=== PATIENT | female | born 1990 | race Hispanic/Latino ===

== ENCOUNTER 2016-09-23 08:17 | Emergency (ER) | payer OTHER ==
[~2016-09-23] VITALS: Ht 152.4 cm; Wt 64.0 kg
[~2016-09-23 08:17] MED LIST: FLOMAX(MONOGRA0.4 MG PO; PERCOCET 325 MG1 TA2 PO; TRAMADOL50 MG PO
[2016-09-23 08:50] LABS: ABSOLUTE BASOPHIL COUNT 0 /CUMM (0.0-0.2); ABSOLUTE EOSINOPHIL COUNT 0.1 /CUMM (0.0-0.7); ABSOLUTE GRANULOCYTE CT 4.6 /CUMM (1.4-6.5); ABSOLUTE LYMPH COUNT 2.1 /CUMM (1.2-3.4); ABSOLUTE MONOCYTE COUNT 0.4 /CUMM (0.10-0.60); BASOPHIL % 0.6 % (0.0-2.0); EOSINOPHIL % 1.8 % (0-5); GRANULOCYTE % 62.8 % (42.2-75.2); HEMATOCRIT 44.6 % (37-47); MEAN CORPUSCULAR HGB 30.6 PG (27.0-31.0); MEAN CORPUSCULAR HGB CONC 33.9 G/DL (33.0-37.0); MEAN CORPUSCULAR VOLUME 90.2 FL (81.0-99.0); MEAN PLATELET VOLUME 9.2 FL (7.4-10.4); PLATELET COUNT 236 /CUMM (130-400); RED BLOOD CELL CT 4.95 /CUMM (4.20-5.40); WHITE BLOOD CELL COUNT 7.4 /CUMM (4.8-10.8)
--- NOTE | 2016-09-23 08:58 | ED GI/GU/ABDOMINAL COMPLAINT ---
History of Present Illness General Chief Complaint: Abdominal Pain/Flank Pain Stated Complaint: RLQ ABD PAIN RADIATING TO BACK Source: patient Exam Limitations: no limitations Vital Signs & Intake/Output Vital Signs & Intake/Output Vital Signs Date Time Temp Pulse Resp B/P Pulse O2 O2 Flow FiO2 Ox Delivery Rate 09/23 1031 97.9 88 18 115/71 98 09/23 0822 97.1 93 20 107/73 97 Room Air Allergies Coded Allergies: NO KNOWN ALLERGIES (10/27/13) Reconcile Medications Ibuprofen 800 MG TABLET 1 TAB PO TID pain OXYCODONE HCL/ACETAMINOPHEN (Percocet 5-325 MG Tablet) 325 MG/5 MG TAB 1-2 TAB PO Q4-6 PRN PRN severe pain Tamsulosin Hydrochloride (Flomax) 0.4 MG CAP.ER.24H 1 CAP PO DAILY kidney stone TRAMADOL HCL (Tramadol) 50 MG TABLET 1-2 TAB PO Q6-PRN PRN moderate pain Triage Note: C/O LOWER ABDOMINAL PAIN, SAW PMD YESTERDAY AND WAS SENT HERE FOR CT SCAN. STATES NOW THE PAIN IS RADIATING NOW INTO RIGHT GROIN AND RIGHT FLANK. PT STATES IT FEELS LIKE A KIDNEY STONES SHE HAS HAD IN THE PAST. ALSO C/O N/V/D Triage Nurses Notes Reviewed? yes ? N Is pt currently ? No Onset: Abrupt Duration: week(s): (1), getting worse Timing: recent history Quality/Severity: moderate, sharpness, severe Location: right lower quadrant Radiation: back Activities at Onset: none No Modifying Factors: none HPI: 26-year-old female comes into emergency room for further evaluation of right lower abdominal pain has been going on since late last week getting progressively worse. Patient reports that she started with generalized abdominal pain nausea vomiting and now the pain is worse in the right lower abdomen. Decreased appetite. Patient reports that she had a CAT scan done yesterday which was normal by her primary care doctor. She denies any urinary symptoms or vaginal discharge. Sexually active with one partner on control. (HEIDY MARCUS) Past History Travel History Traveled to [place] past 21 day No Medical History Any Pertinent Medical History? none Surgical History Surgical History: non-contributory Psychosocial History What is your primary language Greenlandic Tobacco Use: Never used ETOH Use: occasional use Illicit Drug Use: denies illicit drug use Family History Hx Contributory? No (HEIDY MARCUS) Review of Systems Review of Systems Constitutional: Reports: no symptoms. EENTM: Reports: no symptoms. Respiratory: Reports: no symptoms. Cardiovascular: Reports: no symptoms. GI: Reports: see HPI. Genitourinary: Reports: no symptoms. Musculoskeletal: Reports: no symptoms. Skin: Reports: no symptoms. Neurological/Psychological: Reports: no symptoms. Hematologic/Endocrine: Reports: no symptoms. Immunologic/Allergic: Reports: no symptoms. All Other Systems: Reviewed and Negative (HEIDY MARCUS) Physical Exam Physical Exam General Appearance: well developed/nourished, no apparent distress, alert Head: atraumatic, normal appearance Eyes: Bilateral: normal appearance. Ears, Nose, Throat, Mouth: hearing grossly normal, moist mucous membrane Neck: normal inspection, full range of motion Respiratory: normal breath sounds, no respiratory distress Cardiovascular: regular rate/rhythm Gastrointestinal: soft, tenderness (RIGHT LOWER QUADRANT) Back: normal inspection, normal range of motion Extremities: normal range of motion Neurologic/Psych: awake, alert, oriented x 3, normal gait, normal mood/affect Skin: intact, normal color Core Measures ACS in differential dx? No Severe Sepsis Present: No Septic Shock Present: No (HEIDY MARCUS) Progress Differential Diagnosis: appendicitis, cholecystitis, diverticulitis, ectopic , hernia, intrauterine , kidney stone, ovarian cyst, ovarian torsion, PID/cervicitis, peptic ulcer, PUD/GERD, perforated viscous, SBO, UTI/ pyelo Plan of Care: Orders Procedure Date/time Status URINE 09/23 08 Complete URINALYSIS 09/23 08 Complete LIPASE 09/23 08 Complete COMPREHENSIVE METABOLIC PANEL 09/23 08 Complete CBC WITHOUT DIFFERENTIAL 09/23 08 Complete Laboratory Tests 09/23/16 0836: Anion Gap 14, Estimated GFR > 60, BUN/Creatinine Ratio 16.3, Glucose 93, Calcium 10.2, Total Bilirubin 0.6, AST 23, ALT 34, Alkaline Phosphatase 63, Total Protein 8.1, Albumin 4.7, Globulin 3.4, Albumin/Globulin Ratio 1.4, Lipase 84, CBC w Diff NO MAN DIFF REQ, RBC 4.95, MCV 90.2, MCH 30.6, RDW 13.0, MPV 9.2, Gran % 62.8, Lymphocytes % 29.1, Monocytes % 5.7, Eosinophils % 1.8, Basophils % 0.6, Absolute Granulocytes 4.6, Absolute Lymphocytes 2.1, Absolute Monocytes 0.4 , Absolute Eosinophils 0.1, Absolute Basophils 0, PUBS MCHC 33.9, Urinalysis LIGHT H, Urine Color YEL, Urine Clarity CLEAR, Urine pH 6.0, Ur Specific [place] 1.015, Urine Protein NEG, Urine Ketones 15 H, Urine Nitrite NEG, Urine Bilirubin NEG, Urine Urobilinogen 0.2, Ur Leukocyte Esterase NEG, Ur Microscopic SEDIMENT EXAMINED, Urine RBC RARE, Urine WBC RARE, Ur Epithelial Cells MANY H, Urine Bacteria MOD H, Urine Mucus FEW, Urine Hemoglobin TRACE-INTACT, Urine Glucose NEG, Urine Test NEGATIVE Diagnostic Imaging: Viewed by Me: Ultrasound. Discussed w/RAD: Ultrasound. Radiology Impression: SERVICE DATE: 09/23/16 EXAM TYPE: US - US- TRANSVAGINAL EXAMINATION: US TRANSVAGINAL CLINICAL INFORMATION: Right lower quadrant pain. COMPARISON: CT 09/22/2016. TECHNIQUE: Sonographic evaluation of the pelvis is performed transvaginally. FINDINGS: The uterus is anteverted and measures 7.1 x 3.1 x 4.7 cm. The cervical length is 3.0 cm. The endometrial thickness is 0.2 cm. There is trace fluid in the cervical canal, correlate with the patient's menstrual cycle. No uterine masses. The right ovary measures 2.7 x 1.8 x 2.1 cm with a volume of 5.5 mL. No abnormalities. The left ovary measures 2.9 x 2.1 x 2.8 cm with a volume of 8.7 mL. There is a 2 cm simple appearing cyst/follicle. No suspicious findings. Doppler evaluation demonstrates venous and arterial blood flow for both ovaries. No free fluid in the cul-de-sac. IMPRESSION: There is a 2 cm left ovarian follicle. Trace fluid in the cervical canal. Correlate with the patient's menstrual cycle. Otherwise unremarkable. DICTATED BY: FRANK YANG MD DATE/TIME DICTATED:09/23/161037 HAND CANDY DIPPER:MANGO DATE/TIME TRANSCRIBED:09/23/161037 Initial ED EKG: none Comments: 09/23/2016 11:26:24 AM No acute abdomen on exam. Patient denies any vaginal discharge. Afebrile. No white count. No suspicion for a PID. Patient will follow up with her electric furnace operator for pelvic exam. Normal CT scan yesterday. Ultrasound shows a small left ovarian cyst. At this time patient does not require any type of further evaluation here in the emergency room can follow-up with her primary care doctor as an outpatient. Return if any other concerns worsening symptoms. (HEIDY MARCUS) Departure Departure Disposition: HOME OR SELF CARE Condition: Stable Clinical Impression Primary Impression: Abdominal pain Referrals: CAMILLE UGALDE,TIM Cabral (PCP/Family) Additional Instructions: Take ibuprofen for pain. Follow-up with your electric furnace operator. Follow-up with your primary care doctor. Return if any concerns worsening symptoms. Please go over all results of today's visit with your primary care doctor. Contact your primary care doctor to let them know you were here in the emergency room. There may be nonspecific findings which may not be related to your visit today here in the emergency room but may require further evaluation and chronic monitoring by your primary care doctor. If you had a laceration today the chance of foreign body always remains. You should follow-up with your primary care doctor for recheck in 3-5 days for a wound check. If you had an x-ray done there is a chance that a fracture could have been missed on initial read and you should follow-up with your primary care doctor for repeat x-rays if symptoms persist. If your blood pressure was elevated here in the emergency room please have rechecked by her primary care doctor within the next 48 hours by your primary care doctor. If you were prescribed a narcotic here in the emergency room or any type of controlled substances you're not allowed to drive while taking this medication or operate any type of heavy machinery. Narcotics can make you feel lightheaded dizziness nausea and can cause constipation. You may need to merchandise pickup/receiving associate a stool softener. Thank you for choosing [facility] emergency room. Please return to the emergency room immediately if you have any other concerns worsening of symptoms. Departure Forms: Customer Survey General Discharge Information Prescriptions: Current Visit Scripts Ibuprofen 1 TAB PO TID #30 TAB (HEIDY MARCUS) PA/CONFIGURATION TECHNICIAN Co-Sign Statement Statement: ED Attending supervision documentation- [] I saw and evaluated the patient. I have also reviewed all the pertinent lab results and diagnostic results. I agree with the findings and the plan of care as documented in the PA's/CONFIGURATION TECHNICIAN's documentation. x I have reviewed the ED Record and agree with the PA's/CONFIGURATION TECHNICIAN's documentation. [] Additions or exceptions (if any) to the PAs/CONFIGURATION TECHNICIAN's note and plan are summarized below: [] (LEAH UGALDE,BRIGITTE)
[2016-09-23 10:31] VITALS: BP 115/71
--- NOTE | 2016-09-23 11:07 | ULTRASOUND REPORT ---
EXAMINATION: US TRANSVAGINAL CLINICAL INFORMATION: Right lower quadrant pain. COMPARISON: CT 09/22/2016. TECHNIQUE: Sonographic evaluation of the pelvis is performed transvaginally. FINDINGS: The uterus is anteverted and measures 7.1 x 3.1 x 4.7 cm. The cervical length is 3.0 cm. The endometrial thickness is 0.2 cm. There is trace fluid in the cervical canal, correlate with the patient's menstrual cycle. No uterine masses. The right ovary measures 2.7 x 1.8 x 2.1 cm with a volume of 5.5 mL. No abnormalities. The left ovary measures 2.9 x 2.1 x 2.8 cm with a volume of 8.7 mL. There is a 2 cm simple appearing cyst/follicle. No suspicious findings. Doppler evaluation demonstrates venous and arterial blood flow for both ovaries. No free fluid in the cul-de-sac. IMPRESSION: There is a 2 cm left ovarian follicle. Trace fluid in the cervical canal. Correlate with the patient's menstrual cycle. Otherwise unremarkable.
[2016-09-23] MEDS ORDERED: IBUPROFEN800 M1 PO (11:12)
[2016-09-25] MEDS ORDERED: DICYCLOMINE HCL10 M1 PO (09:51)
== END 2016-09-23 11:21 ==
LOC: ERH 08:17
PROVIDERS: Physician Assistant Medical
DX: R10.31 Right lower quadrant pain (principal)
CPT/HCPCS: 81001; 81025; 96372

== ENCOUNTER → 2016-09-25 | Day surgery (SDC) | payer OTHER ==
[~2016-09-25] VITALS: Ht 152.4 cm; Wt 64.4 kg
[~2016-09-25] MED LIST changes: +DICYCLOMINE HCL10 M1 PO; +IBUPROFEN800 M1 PO
--- NOTE | 2016-09-25 17:34 | Operative Report ---
Operative/Inv Procedure Report Surgery Date: 09/25/16 Name of Procedure: Diagnostic laparoscopy Pre-Operative Diagnosis: Pelvic pain Post-Operative Diagnosis: Same endometriosis Estimated Blood Loss: less than 50ml Surgeon/Roustabout Crew: COLEMAN HUYNH MD Anesthesia: general endotracheal tube Operative/Procedure Note Note: Normal uterus ovaries endometriosis implants on the bladder reflection in the cul-de-sac and normal appendix she did not patient was taken the operating room placed supine position after adequate induction general anesthesia via endotracheal tube patient placed in dorsal supine position the vagina from dorsal fashion bladder was catheterized with Rose sterilely the on examination under anesthesia performed CO2 tenaculum placed on the Intralipid cervix gentle downward traction on the Perez cannula was left in place surgeon regowned and gloved at the level the umbilicus stab incision was made to allow for the entry of Veress needle the abdomen was insufflated proximal placed 3 L of CO2 to liver edge dullness which point the Veress needle was removed a 10 mm trocar was inserted the umbilicus sheath remained placed through that sheath laparoscope was placed under direct visualization a 5 mm port was placed 2 fingerbreadths of symptoms pubis in midline peritoneal washings were obtained with a blunt port was sent to pathology once instruments removed from the abdomen under direct visualization at the pictures were taken the incision the umbilicus was oversewn using 0 the skin incisions reapproximated using 3-0 interrupted sutures Marcaine was injected underneath both incisions sterile dressings were applied to both incisions hemostasis was apparent at the end the case all sponge moved from the vagina the patient was returned spine position the Rose was removed she was awakened from anesthesia extubated and transferred recovery room awake alert with counts correct
== END ==
LOC: STS 07:00
DX: R10.2 Pelvic and perineal pain (principal); N80.9 Endometriosis, unspecified
CPT/HCPCS: 81025; 88305; J0131; J0694; J2250; J2405

== ENCOUNTER 2017-08-29 07:19 | Emergency (ER) | payer OTHER ==
[~2017-08-29] VITALS: Ht 154.9 cm; Wt 61.7 kg
[~2017-08-29 07:19] MED LIST changes: +IRON325 M3 PO; +JUNEL FE 1 MG-1 EACH PO; +PROAIR HFA8.5 GM INH; +VICODIN 5-3001 EACH PO; +VITAMIN B-121000 MC3 PO
[2017-08-29 07:26] VITALS: BP 123/73
--- NOTE | 2017-08-29 07:43 | ED GI/GU/ABDOMINAL COMPLAINT ---
History of Present Illness General Chief Complaint: Abdominal Pain/Flank Pain Stated Complaint: LOWER ABD PAIN X 3 WEEKS Source: patient, family Exam Limitations: no limitations Vital Signs & Intake/Output Vital Signs & Intake/Output Vital Signs Date Time Temp Pulse Resp B/P B/P Pulse O2 O2 Flow FiO2 Mean Ox Delivery Rate 08/29 0638 98 Room Air Room Air 08/29 725 98.3 74 16 123/73 99 Room Air Allergies Coded Allergies: hydromorphone (From DILAUDID) (Severe, ANAPHYLAXIS 04/05/17) Reconcile Medications Albuterol Sulfate (Proair Hfa) 90 MCG HFA.AER.AD 2 PUF INH Q4-6 PRN PRN ASTHMA (Reported) Hydrocodone/Acetaminophen (Vicodin 5-300 MG Tablet) 5 MG-300 MG TABLET 1 TAB PO Q4-6 PRN PAIN (Reported) Triage Note: PT TO ED FOR INTERMITTENT PELVIC PAIN RADIATING TO HER ENTIRE ABD X 3 WEEK WITH ASSOCIATED NAUSEA, INTERMITTENT VOMITING. STATING SHE SAW HER PCP, WHO REFERRED HER TO HER OB D/T HX OF ENDOMETRIOSIS, PT REPORTING SHE HAD A NEGATIVE WORK UP WITH HER OB. Triage Nurses Notes Reviewed? yes ? N Is pt currently ? No HPI: Patient presents with increasing pressure type pain in the suprapubic area. The pain radiates occasionally into her back and occasionally into the upper abdomen. The pain waxes and wanes in intensity but does not go away entirely. At its worst the pain is 10 out of 10 on arrival decreased to order 10. At its worst she feels that she needs to call up into a ball. Patient has seen her primary care physician as well as her pin ball machine mechanic for this pain. There was a question whether she had a urinary tract infection. Patient denies any urinary frequency or dysuria. There is no odor to her urine. Patient states that it feels somewhat like her endometriosis which she has had in the past. Past History Travel History Traveled to [place] past 21 day No Medical History Any Pertinent Medical History? 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 No Review of Systems Review of Systems Constitutional: Reports: no symptoms. EENTM: Reports: no symptoms. Respiratory: Reports: no symptoms. Cardiovascular: Reports: no symptoms. GI: Reports: see HPI, abdominal pain. Genitourinary: Reports: no symptoms. Musculoskeletal: Reports: no symptoms. Skin: Reports: no symptoms. Neurological/Psychological: Reports: no symptoms. Hematologic/Endocrine: Reports: no symptoms. Immunologic/Allergic: Reports: no symptoms. All Other Systems: Reviewed and Negative Physical Exam Physical Exam General Appearance: well developed/nourished, alert, awake, mild distress Head: atraumatic, normal appearance Eyes: Bilateral: PERRL, EOMI. Ears, Nose, Throat, Mouth: hearing grossly normal, moist mucous membrane Neck: normal inspection, supple, full range of motion Respiratory: normal breath sounds, chest non-tender, no respiratory distress, lungs clear Cardiovascular: regular rate/rhythm, normal peripheral pulses Gastrointestinal: normal bowel sounds, soft, no organomegaly, tenderness ( DIFFUSE), NO REBOUND OR GUARDING Back: normal inspection, normal range of motion Extremities: normal range of motion Neurologic/Psych: no motor/sensory deficits, awake, alert, oriented x 3, normal mood/affect Skin: intact, normal color, warm/dry Core Measures ACS in differential dx? No Sepsis Present: No Sepsis Focused Exam Completed? No Progress Differential Diagnosis: appendicitis, biliary colic, bowel obstruction, cholecystitis, diverticulitis, ectopic , gastritis, hepatitis, hernia, ischemic bowel, inflamm bowel dis, kidney stone, ovarian cyst, ovarian torsion, pancreatitis, PID/cervicitis, peptic ulcer, PUD/GERD, threatened AB, UTI/pyelo Plan of Care: Orders Procedure Date/time Status URINALYSIS 08/29 07 Complete LIPASE 08/29 07 Complete HUMAN BETA HCG SCREEN 08/29 742 Complete COMPREHENSIVE METABOLIC PANEL 08/29 742 Complete CBC WITHOUT DIFFERENTIAL 08/29 742 Complete AMYLASE 08/29 742 Complete Laboratory Tests 08/29/17 0806: Urine Color YEL, Urine Clarity CLEAR, Urine pH 6.0, Ur Specific [place] 1.020, Urine Protein NEG, Urine Ketones TRACE H, Urine Nitrite NEG, Urine Bilirubin NEG, Urine Urobilinogen 0.2, Ur Leukocyte Esterase NEG, Ur Microscopic EXAM NOT REQUIRED, Urine Hemoglobin NEG, Urine Glucose NEG 08/29/17 0753: Anion Gap 13, Estimated GFR > 60, BUN/Creatinine Ratio 24.3, Glucose 88, Calcium 9.6, Total Bilirubin 0.5, AST 14, ALT 24, Alkaline Phosphatase 56, Total Protein 7.3, Albumin 4.2, Globulin 3.1, Albumin/Globulin Ratio 1.4, Amylase 94, Lipase 70, Total Beta HCG NEGATIVE, CBC w Diff NO MAN DIFF REQ, RBC 4.42, MCV 90.6, MCH 31.0, MCHC 34.3, RDW 12.2, MPV 9.3, Gran % 55.5, Lymphocytes % 35.2, Monocytes % 6.8, Eosinophils % 1.7, Basophils % 0.8, Absolute Granulocytes 3.1, Absolute Lymphocytes 2.0, Absolute Monocytes 0.4, Absolute Eosinophils 0.1, Absolute Basophils 0 Diagnostic Imaging: Viewed by Me: CT Scan. Discussed w/RAD: CT Scan. Initial ED EKG: none Comments: PAIN DECREASED TO 5 OUT OF 10 Departure Departure Disposition: HOME OR SELF CARE Condition: Stable Clinical Impression Primary Impression: Lower abdominal pain, unspecified Referrals: Bull UGALDE,Yessy Perez MD,Nafisa Cabral (PCP/Family) Additional Instructions: FOLLOW UP WITH DR. MENG (UROLOGY) AND DR. EAST (GASTROENTEROLOGY) TAKE MOTRIN NEEDED FOR PAIN RETURN IF SYMPTOMS WORSEN OR FOR ANY CONCERNS Departure Forms: Customer Survey General Discharge Information Prescriptions: Current Visit Scripts Ibuprofen 1 TAB PO TID PRN PAIN #30 TAB
[2017-08-29 08:17] LABS: ABSOLUTE BASOPHIL COUNT 0 /CUMM (0.0-0.2); ABSOLUTE EOSINOPHIL COUNT 0.1 /CUMM (0.0-0.7); ABSOLUTE GRANULOCYTE CT 3.1 /CUMM (1.4-6.5); ABSOLUTE MONOCYTE COUNT 0.4 /CUMM (0.10-0.60); BASOPHIL % 0.8 % (0.0-2.0); EOSINOPHIL % 1.7 % (0-5); GRANULOCYTE % 55.5 % (42.2-75.2); MEAN CORPUSCULAR HGB CONC 34.3 G/DL (33.0-37.0); MEAN CORPUSCULAR VOLUME 90.6 FL (81.0-99.0); MEAN PLATELET VOLUME 9.3 FL (7.4-10.4); PLATELET COUNT 215 /CUMM (130-400); RBC DISTRIBUTION WIDTH 12.2 % (11.5-14.5); RED BLOOD CELL CT 4.42 /CUMM (4.20-5.40); WHITE BLOOD CELL COUNT 5.7 /CUMM (4.8-10.8)
--- NOTE | 2017-08-29 09:40 | CT SCAN REPORT ---
EXAMINATION: CT ABDOMEN AND PELVIS WITH CONTRAST CLINICAL INFORMATION: Right lower quadrant abdominal pain. COMPARISON: Abdominal ultrasound of . TECHNIQUE: Multidetector volumetric imaging was performed of the abdomen and pelvis following IV administration of 90 mL of Optiray 320 intravenous contrast. Sagittal and coronal reformatted images were obtained on the technologist's workstation. DLP: 272.24 mGy-cm FINDINGS: LUNG BASES: The visualized lung bases are unremarkable. LIVER, GALLBLADDER, AND BILIARY TREE: The liver is normal in size, shape, and attenuation. No focal hepatic lesion or biliary ductal dilatation is present. The gallbladder is unremarkable with no evidence of radiopaque gallstones, gallbladder wall thickening, or obvious pericholecystic inflammatory changes. PANCREAS: Unremarkable. SPLEEN: Unremarkable. ADRENAL GLANDS: Unremarkable. KIDNEYS AND URETERS: The kidneys are normal in size, shape, and attenuation. No hydronephrosis, hydroureter, or calculi seen. No perinephric stranding. BLADDER: Unremarkable. GASTROINTESTINAL TRACT: The stomach and duodenum are unremarkable. The small bowel mesentery are unremarkable. The colon is unremarkable. The appendix is normal. ABDOMINAL WALL: No significant hernia is appreciated. LYMPH NODES: Normal. VASCULAR: Unremarkable. PELVIC VISCERA: Unremarkable. OSSEOUS STRUCTURES: Unremarkable. IMPRESSION: Unremarkable examination. No cause for abdominal pain identified. Normal appendix.
[2017-08-29] MEDS ORDERED: IBUPROFEN800 M1 PO (09:59)
== END 2017-08-29 10:07 ==
LOC: ERH 07:19
PROVIDERS: Emergency Medicine
DX: R10.30 Lower abdominal pain, unspecified (principal)
CPT/HCPCS: 74177; 81003; 96361; 96374; 96375; J1885; J2405